=== PATIENT | female | born 1985 | race Hispanic/Latino ===

== ENCOUNTER → 2025-07-14 | Outpatient (REF) | payer OTHER | LOC: NM 09:23 | PROVIDERS: ATTEND Pain Medicine Interventional Pain Medicine | DX: R10.13 Epigastric pain (principal); R14.0 Abdominal distension (gaseous); R11.0 Nausea; K21.00 Gastro-esophageal reflux disease with esophagitis, without bleeding; K44.9 Diaphragmatic hernia without obstruction or gangrene; Z68.34 Body mass index [BMI] 34.0-34.9, adult; Z71.3 Dietary counseling and surveillance; Z78.9 Other specified health status | CPT/HCPCS: 78264; 81025; A9541 ==